=== PATIENT | male | born 1955 | race Caucasian/White ===

== ENCOUNTER → 2019-06-13 00:01 | Outpatient (BNVA) | payer OTHER, MEDICARE, SELFPAY | PROVIDERS: Family Provider Family Medicine; PCP Family Medicine; Visit Provider Nurse Practitioner Family | DX: Z00.00 Encounter for general adult medical examination without abnormal findings (principal); Z12.5 Encounter for screening for malignant neoplasm of prostate; Z72.0 Tobacco use; F41.1 Generalized anxiety disorder | CPT/HCPCS: 80053; 80061; 84153; 85025 ==

== ENCOUNTER → 2021-07-16 08:52 | Outpatient (BNVA) | payer MEDICARE, SELFPAY | PROVIDERS: Family Provider Family Medicine; PCP Family Medicine; Visit Provider Family Medicine | DX: Z12.5 Encounter for screening for malignant neoplasm of prostate (principal); Z13.1 Encounter for screening for diabetes mellitus; Z13.6 Encounter for screening for cardiovascular disorders; F17.200 Nicotine dependence, unspecified, uncomplicated; F41.1 Generalized anxiety disorder; F13.20 Sedative, hypnotic or anxiolytic dependence, uncomplicated; Z12.11 Encounter for screening for malignant neoplasm of colon | CPT/HCPCS: 80053; 80061; 84153; 85025 ==

== ENCOUNTER → 2022-06-14 09:34 | Outpatient (BNVA) | payer MEDICARE, SELFPAY | PROVIDERS: Family Provider Family Medicine; PCP Family Medicine; Visit Provider Family Medicine | DX: Z13.6 Encounter for screening for cardiovascular disorders (principal); Z13.220 Encounter for screening for lipoid disorders; Z13.1 Encounter for screening for diabetes mellitus | CPT/HCPCS: 80053; 80061 ==

== ENCOUNTER → 2023-02-24 15:09 | Outpatient (BNVA) | payer MEDICARE, SELFPAY | PROVIDERS: Family Provider Family Medicine; PCP Family Medicine; Visit Provider Family Medicine | DX: F41.1 Generalized anxiety disorder (principal); F13.20 Sedative, hypnotic or anxiolytic dependence, uncomplicated; Z51.81 Encounter for therapeutic drug level monitoring; Z13.1 Encounter for screening for diabetes mellitus; Z13.6 Encounter for screening for cardiovascular disorders; R45.86 Emotional lability; R41.89 Other symptoms and signs involving cognitive functions and awareness; R30.0 Dysuria; Z81.8 Family history of other mental and behavioral disorders | CPT/HCPCS: 80061; 81000; 82607; 85025 ==

== ENCOUNTER → 2023-04-16 08:35 | Outpatient (BNVA) | payer MEDICARE, SELFPAY | PROVIDERS: Family Provider Family Medicine; PCP Family Medicine; Visit Provider Psychiatry & Neurology Neurology | DX: R29.90 Unspecified symptoms and signs involving the nervous system (principal); R26.89 Other abnormalities of gait and mobility; E55.9 Vitamin D deficiency, unspecified; F41.1 Generalized anxiety disorder | CPT/HCPCS: 36415; 82306; 82746; 83735; 83921; 84439; 84443; 84481; 99203 ==

== ENCOUNTER 2023-04-28 09:36 | Outpatient (CLI) | payer MEDICARE, SELFPAY ==
--- NOTE | 2023-04-28 10:15 | USCV_ITS ---
SamanoMurali Age: 67 Gender: M : 1955 Exam Date: 04/28/2023 09:44 Ordering Phys: Ernesto Myers MD Technologist: CT Exam Location: [facility] – [place], [place]_ Indication: abn gait Risk Factors: Previous Vascular Surgery: Right Brachial BP: / Left Brachial BP: / Right Left Velocity (cm/s) Spectral Plaque Velocity (cm/s) Spectral Plaque Syst/Diast Broadening Syst/Diast Broadening 88.20/ 25.40 Prox CCA 68.30 / 21.10 50.20/ 16.50 Mid CCA 49.60 / 16.40 43.00/ 15.90 Distal CCA 44.20 / 17.30 45.10/ 20.00 Prox ICA 44.20 / 17.30 54.20/ 21.80 Mid ICA 45.10 / 17.50 57.00/ 22.40 Distal ICA 57.60 / 24.00 64.10 ECA 72.70 0.65 ICA/CCA 0.84 Antegrade Vertebral Antegrade 33.00/ 14.50 cm/s 28.10/ 11.50 cm/s Tri Subclavian Tri 64.30 60.60 CONCLUSIONS Right ICA stenosis <50%. Mild atheromatous plaque right carotid bulb/ICA. Left ICA stenosis <50%. Mild atheromatous plaque left carotid bulb/ICA. Intimal thickening in the common carotid arteries and internal carotid arteries bilaterally. Normal antegrade Doppler flow noted in the right vertebral artery. Normal antegrade Doppler flow noted in the left vertebral artery. Emery Morgan MD (Electronically Signed) Final Date: 28 April 2023 11:47 S
== END 2023-04-28 09:37 | disposition home or self-care (01) ==
LOC: RAD 09:36
PROVIDERS: Family Provider Family Medicine; PCP Family Medicine; Visit Provider Psychiatry & Neurology Neurology
DX: R26.89 Other abnormalities of gait and mobility (principal); R29.90 Unspecified symptoms and signs involving the nervous system; I65.23 Occlusion and stenosis of bilateral carotid arteries
CPT/HCPCS: 93880

== ENCOUNTER → 2023-05-28 14:31 | Outpatient (BNVA) | payer MEDICARE, SELFPAY | PROVIDERS: Family Provider Family Medicine; PCP Family Medicine; Visit Provider Family Medicine | DX: Z12.5 Encounter for screening for malignant neoplasm of prostate (principal); R97.20 Elevated prostate specific antigen [PSA]; Z00.00 Encounter for general adult medical examination without abnormal findings; Z71.89 Other specified counseling; Z72.0 Tobacco use; Z53.20 Procedure and treatment not carried out because of patient's decision for unspecified reasons | CPT/HCPCS: G0103 ==

== ENCOUNTER → 2024-05-31 13:23 | Outpatient (BNVA) | payer MEDICARE, SELFPAY | PROVIDERS: Family Provider Family Medicine; PCP Family Medicine; Visit Provider Family Medicine | DX: Z12.5 Encounter for screening for malignant neoplasm of prostate; Z13.1 Encounter for screening for diabetes mellitus; R97.20 Elevated prostate specific antigen [PSA]; Z13.6 Encounter for screening for cardiovascular disorders | CPT/HCPCS: 80053; 80061; G0103 ==

== ENCOUNTER → 2024-06-15 09:20 | Outpatient (BNVA) | payer MEDICARE, SELFPAY | PROVIDERS: Family Provider Family Medicine; PCP Family Medicine; Referring Provider Family Medicine; Visit Provider Student in an Organized Health Care Education/Training Program | DX: Z12.11 Encounter for screening for malignant neoplasm of colon (principal); R03.0 Elevated blood-pressure reading, without diagnosis of hypertension | CPT/HCPCS: 99204 ==

== ENCOUNTER 2024-07-13 09:45 | Day surgery (SDC) | payer MEDICARE, SELFPAY ==
[2024-07-13 10:16] VITALS: BP 146/80; PULSE 91; RESP 18; TEMP 36.4; O2SAT 95; BMI 23.5
[2024-07-13] MEDS: sodium chloride 0.9% 500 ML 15 ML IV (10:33)
--- NOTE | 2024-07-13 10:44 | P.ANESASSM_ITS ---
Pre-Anesthetic Assessment Height/Weight: Height 1.78 m Weight 74.389 kg Temp Pulse Resp BP Pulse Ox O2 Del Method 97.5 F L 91 18 146/80 95 Room Air 07/13/24 10:16 07/13/24 10:16 07/13/24 10:16 07/13/24 10:16 07/13/24 10:16 07/13/24 10:16 Preop Diagnosis: History of polyps Operation Date: 07/13/24 11:15 Proposed Procedures p Colonoscopy(Not Applicable) - Topher Cooper MD Familial anesthetic complications: none Was Beta Sajan taken within 24 hours: N/A Was Clonidine taken within 24 hours: N/A Last intake: Intake Last Liquid Date 07/12/24 Last Liquid Time 20:00 Last Solid Date 07/11/24 Last Solid Time 20:00 Social Tobacco 2 pack(s) per day 100+ pack years 2PPD since age 15 Exam alert, oriented x 3, clear to auscultation bilaterally and regular rate & rhythm Airway Submandibular: within normal limits Cervical ROM: within normal limits Mallampati: Class II Comments: Comments: endentulous History/ROS Other Pulmonary Chronic Obstructive Pulmonary Disease 100+ pack years CV/HEM None reported None reported Hepatic None reported GI Mild occasional reflux Musc/skel None reported Neuropsych Anxiety CASSANDRA controlled with clonazepam, last dose this am. Anesthetic Plan Anesthesia: MAC Risk of > 500 ml blood loss (7ml/kg in children): No Medications/Allergies Home Medications ?Medication ?Instructions ?Recorded ?Confirmed ?Last Taken ?Type clonazepam 0.5 mg tablet 0.25 mg (1/2 x 0.5 mg) PO TI D PRN 05/31/24 07/13/24 07/13/24 Rx anxiety 30 days #45 tabs fluoxetine 10 mg capsule 10 mg PO DAILY 90 days #90 c aps 05/31/24 07/13/24 07/12/24 Rx albuterol sulfate 90 mcg/actuation 2 puff inhalation Q ID PRN 07/08/24 07/13/24 07/13/24 History aerosol inhaler Shortness Of Breath Or Wheez ing Allergies Allergy/AdvReac Type Severity Reaction Status Date / Time cholecalciferol (vitamin D3) Allergy Unknown unknown Verified 07/08/24 08:33 (From Vitamin D3) Current Medications Generic Name Dose Route Start Last Admin Trade Name Freq PRN Reason Stop Dose Admin Sodium Chloride 500 mls @ 15 mls/hr 07/13/24 09:51 07/13/24 10:33 Sodium Chloride 0.9% IV 07/14/24 09:50 15 mls/hr .Q24H PRN Administration COLONOSCOPY FLUIDS PFSH Anesthesia Medical History CASSANDRA (generalized anxiety disorder) Surgical History History of colonoscopy with polypectomy 2015 Family History Mother Hypertension Dementia Father Hypertension Social History Smoking and tobacco/nicotine status: current every day tobacco/nicotine user cigarettes Packs smoked per day: 1 Quit status (tobacco/nicotine): not considering quitting Second hand smoke exposure: No Alcohol intake: never Substance/Drug Use: never Data Anesthesia Cardiac Studies: No Data to Display
--- NOTE | 2024-07-13 11:07 | W.PM.OPSUD ---
Surgery/Procedure H&P Update DATE OF PROCEDURE: July 13, 2024 DATE H&P PERFORMED: 06/15/24 H&P UPDATE INFORMATION: I have reviewed H&P completed within last 30 days, I have examined patient prior to procedure and No changes to prior documentation PREOP DIAGNOSIS: History of polyps PLANNED PROCEDURE: Operation Date: 07/13/24 11:15 Proposed Procedures p Colonoscopy(Not Applicable) - Topher Cooper MD
--- NOTE | 2024-07-13 11:09 | P.ANESASSM_ITS ---
Pre-Anesthetic Assessment Height/Weight: Height 1.78 m Weight 74.389 kg Temp Pulse Resp BP Pulse Ox O2 Del Method 97.5 F L 91 18 146/80 95 Room Air 07/13/24 10:16 07/13/24 10:16 07/13/24 10:16 07/13/24 10:16 07/13/24 10:16 07/13/24 10:16 Preop Diagnosis: History of polyps Operation Date: 07/13/24 11:15 Proposed Procedures p Colonoscopy(Not Applicable) - Topher Cooper MD Last intake: Intake Last Liquid Date 07/12/24 Last Liquid Time 20:00 Last Solid Date 07/11/24 Last Solid Time 20:00 Anesthetic Plan ASA status: 2 Anesthesia: MAC Medications/Allergies Home Medications ?Medication ?Instructions ?Recorded ?Confirmed ?Last Taken ?Type clonazepam 0.5 mg tablet 0.25 mg (1/2 x 0.5 mg) PO TI D PRN 05/31/24 07/13/24 07/13/24 Rx anxiety 30 days #45 tabs fluoxetine 10 mg capsule 10 mg PO DAILY 90 days #90 c aps 05/31/24 07/13/24 07/12/24 Rx albuterol sulfate 90 mcg/actuation 2 puff inhalation Q ID PRN 07/08/24 07/13/24 07/13/24 History aerosol inhaler Shortness Of Breath Or Wheez ing Allergies Allergy/AdvReac Type Severity Reaction Status Date / Time cholecalciferol (vitamin D3) Allergy Unknown unknown Verified 07/08/24 08:33 (From Vitamin D3) Current Medications Generic Name Dose Route Start Last Admin Trade Name Freq PRN Reason Stop Dose Admin Sodium Chloride 500 mls @ 15 mls/hr 07/13/24 09:51 07/13/24 10:33 Sodium Chloride 0.9% IV 07/14/24 09:50 15 mls/hr .Q24H PRN Administration COLONOSCOPY FLUIDS PFSH Anesthesia Medical History CASSANDRA (generalized anxiety disorder) Surgical History History of colonoscopy with polypectomy 2015 Family History Mother Hypertension Dementia Father Hypertension Social History Smoking and tobacco/nicotine status: current every day tobacco/nicotine user cigarettes Packs smoked per day: 1 Quit status (tobacco/nicotine): not considering quitting Second hand smoke exposure: No Alcohol intake: never Substance/Drug Use: never Data Anesthesia Cardiac Studies: No Data to Display
[2024-07-13 12:01] VITALS: BP 96/66; PULSE 97; RESP 18; O2SAT 99
[2024-07-13 12:32] VITALS: BP 100/71; PULSE 86; RESP 18; O2SAT 99
--- NOTE | 2024-07-13 12:35 | ANE.PACU2 ---
Inpatient post-anesthesia follow up: Airway intact: Yes Vital signs: Temperature 97.5 F Pulse Rate 86 Respiratory Rate 18 Blood Pressure 100/71 Pulse Oximetry 99 Oxygen Delivery Me thod Room Air Oxygen Flow Rate Fraction of Inspir ed Oxygen Hydration adequate: Yes Nausea and vomiting: No Pain level: 1 Mental status: Baseline
== END 2024-07-13 12:35 | disposition home or self-care (01) ==
PROVIDERS: PCP Family Medicine; Visit Provider Student in an Organized Health Care Education/Training Program
PROC: 0DJD8ZZ Inspection of Lower Intestinal Tract, Via Natural or Artificial Opening Endoscopic (ICD-10-PCS; CPT 45378; principal; 2024-07-13 11:15)
DX: Z12.11 Encounter for screening for malignant neoplasm of colon (principal); K63.5 Polyp of colon; F41.1 Generalized anxiety disorder; K57.30 Diverticulosis of large intestine without perforation or abscess without bleeding; J44.9 Chronic obstructive pulmonary disease, unspecified; F17.210 Nicotine dependence, cigarettes, uncomplicated; Z79.899 Other long term (current) drug therapy; Z86.0100 Personal history of colon polyps, unspecified
CPT/HCPCS: 45385; 88305; J2704; J7040

== ENCOUNTER → 2024-07-26 11:47 | Outpatient (BNVA) | payer MEDICARE, SELFPAY | PROVIDERS: PCP Family Medicine; Visit Provider Student in an Organized Health Care Education/Training Program | DX: K63.5 Polyp of colon (principal) | CPT/HCPCS: 99213 ==

== ENCOUNTER → 2025-03-28 13:54 | Outpatient (BNVA) | payer MEDICARE, SELFPAY | PROVIDERS: Family Provider Family Medicine; PCP Family Medicine; Visit Provider Nurse Practitioner | DX: B35.1 Tinea unguium (principal) | CPT/HCPCS: 80053 ==

== ENCOUNTER → 2025-05-30 08:27 | Outpatient (BNVA) | payer MEDICARE, SELFPAY | PROVIDERS: Family Provider Family Medicine; PCP Family Medicine; Visit Provider Family Medicine | DX: R97.20 Elevated prostate specific antigen [PSA] (principal); J44.1 Chronic obstructive pulmonary disease with (acute) exacerbation; R74.8 Abnormal levels of other serum enzymes; Z12.5 Encounter for screening for malignant neoplasm of prostate | CPT/HCPCS: 80048; 80061; 84153; 84154 ==